=== PATIENT | female | born 1980 | race Caucasian/White ===

== ENCOUNTER 2018-04-21 22:24 | Emergency (ER) | payer OTHER ==
[~2018-04-21] VITALS: Ht 170.2 cm; Wt 47.6 kg
[~2018-04-21 22:24] MED LIST: Augmentin 875-1 EACH PO; CIPR500 PO; CYCL10 PO; Cyclobenzaprine5 MG PO; DIAZ5 PO; IBUP400 PO; MULVITMIND PO; NAPR500 PO; Naprosyn500 MG PO; PENVK500 PO; TRAM50 PO; TRAZ50 PO
== END 2018-04-21 23:37 | disposition home or self-care (01) ==
LOC: ER 22:24
DX: S16.1XXA Strain of muscle, fascia and tendon at neck level, initial encounter (principal); F17.210 Nicotine dependence, cigarettes, uncomplicated; W19.XXXA Unspecified fall, initial encounter
CPT/HCPCS: 72040; 96372; 99283-25; J1885

== ENCOUNTER 2018-12-21 01:54 | Inpatient (IN) | payer OTHER ==
[~2018-12-21] VITALS: Ht 170.2 cm; Wt 54.4 kg
[2018-12-21 02:39] LABS: BASOPHILS ABSOLUTE AUTO 0.04 K/mm3 (0.00-0.23); BASOPHILS PERCENT AUTO 0 % (0-2); EOSINOPHILS ABSOLUTE AUTO 0.04 K/mm3 (0.00-0.68); EOSINOPHILS PERCENT AUTO 0 % (0-6); Hematocrit 35.8 % (33.0-51.0); IMMATURE GRAN ABSOLUTE AUTO 0.08 K/mm3 (0.00-0.10); IMMATURE GRAN PERCENT AUTO 1 % (0-1); LYMPHOCYTES ABSOLUTE AUTO 1.84 K/mm3 (0.84-5.20); LYMPHOCYTES PERCENT AUTO 12 % (21-46); MONOCYTES ABSOLUTE AUTO 1.77 K/mm3 (0.16-1.47); MONOCYTES PERCENT AUTO 11 % (4-13); Mean Corpuscular HGB 25.3 pg (26.0-34.0); Mean Corpuscular HGB Conc 30.7 g/dL (31.5-36.5); Mean Corpuscular Volume 83 fL (80-100); NEUTROPHILS ABSOLUTE AUTO 11.72 K/mm3 (1.96-9.15); NEUTROPHILS PERCENT AUTO 76 % (41-73); Platelet Count 310 K/mm3 (150-400); RDW Coefficient Variation 14.7 % (11.7-14.2); RDW Standard Deviation 44.8 fL (35.1-46.3); Red Blood Cell Count 4.34 M/mm3 (3.80-5.20); White Blood Cell Count 15.49 K/mm3 (4.00-11.30)
[2018-12-21 02:56] LABS: Alanine Aminotransfer (ALT/SGP 30 U/L (12-78); Albumin, Blood 2.9 g/dL (3.4-5.0); Albumin/Globulin Ratio 0.5 (0.8-1.8); Alk Phos 99 U/L (50-136); Anion Gap 7 mmol/L (6-16); Aspartate Aminotrans (AST/SGOT 20 U/L (12-37); Bilirubin, Total 0.5 mg/dL (0.1-1.0); Blood Urea Nitrogen 13 mg/dL (8-24); Bun/Creatinine Ratio 17.5 (12.0-20.0); CO2, Blood 27 mmol/L (21-32); Calcium, Blood 8.5 mg/dL (8.5-10.1); Chloride, Blood 102 mmol/L (98-108); Creatinine, Blood 0.74 mg/dL (0.40-1.00); Globulin, Blood 5.4 g/dL (2.2-4.0); Glomerular Filtration Rate >60 (60-); Glucose, Blood 89 mg/dL (70-99); Potassium, Blood 3.4 mmol/L (3.5-5.5); Sodium, Blood 136 mmol/L (136-145); Total Protein, Blood 8.3 g/dL (6.4-8.2)
[2018-12-21 04:01] LABS: International Normalized Ratio 1.05; Prothrombin Time Results 11.1 Sec (9.7-11.5)
[2018-12-21 04:01] LABS: BASOPHILS ABSOLUTE AUTO 0.05 K/mm3 (0.00-0.23); BASOPHILS PERCENT AUTO 0 % (0-2); EOSINOPHILS ABSOLUTE AUTO 0.07 K/mm3 (0.00-0.68); EOSINOPHILS PERCENT AUTO 0 % (0-6); Hematocrit 36.1 % (33.0-51.0); IMMATURE GRAN ABSOLUTE AUTO 0.09 K/mm3 (0.00-0.10); IMMATURE GRAN PERCENT AUTO 1 % (0-1); LYMPHOCYTES ABSOLUTE AUTO 1.93 K/mm3 (0.84-5.20); LYMPHOCYTES PERCENT AUTO 12 % (21-46); MONOCYTES ABSOLUTE AUTO 1.56 K/mm3 (0.16-1.47); MONOCYTES PERCENT AUTO 10 % (4-13); Mean Corpuscular HGB 25.3 pg (26.0-34.0); Mean Corpuscular HGB Conc 30.5 g/dL (31.5-36.5); Mean Corpuscular Volume 83 fL (80-100); Mean Platelet Volume 8.9 fL (9.1-12.4); NEUTROPHILS ABSOLUTE AUTO 12.49 K/mm3 (1.96-9.15); NEUTROPHILS PERCENT AUTO 77 % (41-73); Platelet Count 321 K/mm3 (150-400); RDW Coefficient Variation 14.7 % (11.7-14.2); RDW Standard Deviation 45.1 fL (35.1-46.3); Red Blood Cell Count 4.35 M/mm3 (3.80-5.20); White Blood Cell Count 16.19 K/mm3 (4.00-11.30)
[2018-12-21 04:19] LABS: Alanine Aminotransfer (ALT/SGP 33 U/L (12-78); Albumin/Globulin Ratio 0.5 (0.8-1.8); Alk Phos 107 U/L (50-136); Anion Gap 7 mmol/L (6-16); Aspartate Aminotrans (AST/SGOT 23 U/L (12-37); Bilirubin, Total 0.6 mg/dL (0.1-1.0); Blood Urea Nitrogen 13 mg/dL (8-24); Bun/Creatinine Ratio 17.6 (12.0-20.0); CO2, Blood 28 mmol/L (21-32); Calcium, Blood 8.7 mg/dL (8.5-10.1); Chloride, Blood 102 mmol/L (98-108); Creatinine, Blood 0.74 mg/dL (0.40-1.00); Globulin, Blood 5.5 g/dL (2.2-4.0); Glomerular Filtration Rate >60 (60-); Glucose, Blood 98 mg/dL (70-99); Potassium, Blood 3.1 mmol/L (3.5-5.5); Sodium, Blood 137 mmol/L (136-145); Total Protein, Blood 8.5 g/dL (6.4-8.2)
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
[2018-12-21 09:53] LABS: Source, Urine Clean Catch
[2018-12-21 10:06] LABS: Bilirubin, Urine Neg (Neg); Blood, Urine 4+ (Neg); Glucose Qualitative, Urine Neg (Neg); Ketones, Urine Neg (Neg); Leukocyte Esterase, Urine 1+ (Neg); Nitrite, Urine Neg (Neg); Protein, Urine 1+ (Neg); Specific Gravity, Urine 1.005 (1.003-1.022); Urobilinogen, Urine NORM (Normal); pH, Urine 6.5 (5.0-8.0)
[2018-12-21 10:20] LABS: Appearance, Urine Hazy (Clear); Color, Urine Yellow (P-Yellow); Squamous Epithelial Cells Few /hpf (Few)
[2018-12-21 10:21] LABS: Bacteria Rare /hpf
--- NOTE | 2018-12-21 16:09 | NUR ---
summary PT IS A/O X4, PLEASANT/COOPERATIVE, UP IND HOWEVER PAIN R THIGH W AMBULATION. HAVE GIVEN FENTANYL FOR PAIN CONTROL/RELIEF. R INNER THIGH SWOLLEN, RED, HARD W SMALL SCAB, MINIMAL DRAINAGE. CLEANED AREA THIS AM & PLACED ABD PAD. DR LADD (SURG CONSULT) IN TO SEE PT. NO SURGERY @ THIS TIME HOWEVER PLACE ORDER TO KEEP PT NPO FOR THE REST OF DAY & MX, IF NO IMPROVEMENT OR WORSENING THEN POSSIBLE SURG TOMORROW. IV ANTIBX CONTINUE. LOW K+ @ 3.1, KRIDER GIVEN TODAY. HR SOMEWHAT TACHY 100-110/TELE. IV NS @ 125 ML/HR. PT HAS DOG IN ROOM WITH HER, SHE HAS BEEN ATTEMPTING TO FIND SOMEONE TO TAKE DOG OUT HOWEVER UNSUCCESSFUL YET. MINISTER HELPER AWARE.
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
[2018-12-22 05:01] LABS: Hematocrit 29.1 % (33.0-51.0); Hemoglobin 8.9 g/dL (11.5-16.0); Mean Corpuscular HGB 25.8 pg (26.0-34.0); Mean Corpuscular HGB Conc 30.6 g/dL (31.5-36.5); Mean Corpuscular Volume 84 fL (80-100); Platelet Count 253 K/mm3 (150-400); RDW Standard Deviation 45.9 fL (35.1-46.3); Red Blood Cell Count 3.45 M/mm3 (3.80-5.20); White Blood Cell Count 10.61 K/mm3 (4.00-11.30)
[2018-12-22 05:57] LABS: Alanine Aminotransfer (ALT/SGP 27 U/L (12-78); Albumin, Blood 2.2 g/dL (3.4-5.0); Albumin/Globulin Ratio 0.5 (0.8-1.8); Alk Phos 90 U/L (50-136); Anion Gap 5 mmol/L (6-16); Aspartate Aminotrans (AST/SGOT 21 U/L (12-37); Bilirubin, Total 0.3 mg/dL (0.1-1.0); Blood Urea Nitrogen 7 mg/dL (8-24); Bun/Creatinine Ratio 9.9 (12.0-20.0); CO2, Blood 26 mmol/L (21-32); Calcium, Blood 8.1 mg/dL (8.5-10.1); Chloride, Blood 110 mmol/L (98-108); Creatinine, Blood 0.71 mg/dL (0.40-1.00); Globulin, Blood 4.5 g/dL (2.2-4.0); Glomerular Filtration Rate >60 (60-); Glucose, Blood 89 mg/dL (70-99); Potassium, Blood 4.2 mmol/L (3.5-5.5); Sodium, Blood 141 mmol/L (136-145); Total Protein, Blood 6.7 g/dL (6.4-8.2); Vancomycin, Trough 3.1 ug/mL (5.0-10.0)
--- NOTE | 2018-12-22 08:03 | NUR ---
SHIFT SUMMARY PT SLEPT WELL T/O NIGHT. AOX4. DENIES NAUSEA OR SOB. REPORTS 7/10 PAIN IN RIGHT UPPER THIGH, MEDICATED W/FENTANYL PER ORDERS. RIGHT UPPER THIGH IS RED, WARM TO TOUCH, TENDER, FIRM & SWOLLEN, PT REPORTS THE SWELLING HAS DECREASED, SWELLING IS MAPPED W/MARKER. PT HAS BEEN NPO SINCE MIDNIGHT, INCASE POSSIBLE PROCEDURE TODAY. CALL LIGHT IN REACH.
--- NOTE | 2018-12-22 19:43 | NUR ---
SHIFT SUMMARY PT A&OX4. CALM AND COOPERATIVE WITH CARE. PT RESTING IN BED DURING SHIFT. IND TO BSC. PT STATES REDNESS AND SWELLING ARE BETTER THAN YESTERDAY, REDNESS APPEARS TO BE RECEEDING FROM MARKED LINE, DRAINING SANGUINEOUS FLUID. PT RECEIVING IV ANTIBIOTICS. PT REPORTS PAIN IN RIGHT THIGH, MEDICATED X1 WITH IV FENTANYL. PT DENIES SOB AND N/V. VSS, REMAINS AFEBRILE DURING SHIFT. NO OTHER ACUTE CHANGES NOTED DURING SHIFT. REPORT GIVEN TO ONCOMING RN.
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
--- NOTE | 2018-12-23 07:42 | NUR ---
SHIFT SUMMARY PT SLEPT WELL T/O NIGHT. NO ACUTE CHANGES THIS SHIFT. AOX4. VSS. DENIES SOB OR NAUSEA. RIGHT UPPER THIGH IS STILL RED, FIRM, TENDER, W/A MODERATE AMOUNT SANGUINOUS DRAINAGE, ABD PAD WAS PLACED TO HELP W/DRAINAGE. CALL LIGHT IS IN REACH.
[2018-12-23] MEDS ORDERED: CLIN300 PO (10:41)
[2018-12-23] MEDS ORDERED: ACET325 PO (10:41)
--- NOTE | 2018-12-23 16:15 | NUR ---
DISCHARGE SUMMARY PT A&OX4. ANXIOUS AT TIMES, COOPERATIVE WITH CARE. PT RESTING IN BED DURING SHIFT. UP IND TO BSC. RIGHT UPPER, INNER THIGH IS RED, FIRM AND TENDER. PT REPROTS PAIN, MEDICATED X1 WITH FENTANYL WITH POSITIVE RESULTS. PT RECEIVING IV ANTIBIOTICS AND WILL TRANSITION TO PO ANTIBIOTICS AT HOME. PT DENIES SOB AND N/V DURING SHIFT. VSS. NO OTHER ACUTE CHANGES NOTED DURING SHIFT. PT EDUCATED ON DISCHARGE INSTURCTION, MEDICATIONS AND FOLLOW UP APPOINTMENTS. PRESCRIPTION ORIGINALLY FAXED TO [facility] PER PT REQUEST, [facility] [place] [facility] PT REQUEST. PT LEFT ROOM VIA WHEELCHAIR AT 1535 WITH TRANSPORT. PT STABLE UPON DISCHARGE.
== END 2018-12-23 15:41 | disposition home or self-care (01) | DRG 872 ==
LOC: ER 01:54 → MEDS 05:33 → ENPENDDIS 12-23 10:18 → MEDS 12-23 15:41
PROVIDERS: Emergency Medicine; ADMIT Internal Medicine
DX: A41.9 Sepsis, unspecified organism (principal); L03.115 Cellulitis of right lower limb; E86.0 Dehydration; E87.6 Hypokalemia; M60.861 Other myositis, right lower leg; T24.011A Burn of unspecified degree of right thigh, initial encounter; X08.8XXA Exposure to other specified smoke, fire and flames, initial encounter; F17.210 Nicotine dependence, cigarettes, uncomplicated; F12.90 Cannabis use, unspecified, uncomplicated; F15.10 Other stimulant abuse, uncomplicated
CPT/HCPCS: 36415; 73701; 80053; 80202; 81001; 81025; 83605; 85025; 85027; 85610; 87040; 87086; 96361-59; 96374-59; 96375-59; 99284-25; J1170; J1650; J2543; J3010; J3370; J3480; J7030; J7050; J7120; Q9967

== ENCOUNTER 2019-02-21 18:07 | Emergency (ER) | payer OTHER ==
[~2019-02-21] VITALS: Ht 167.6 cm; Wt 56.7 kg
[~2019-02-21 18:07] MED LIST changes: +ACET325 PO; +CLIN300 PO
[2019-02-21] MEDS ORDERED: Keflex500 MG PO (18:32)
== END 2019-02-21 18:35 | disposition home or self-care (01) ==
LOC: ER 18:07
DX: L03.115 Cellulitis of right lower limb (principal); F17.210 Nicotine dependence, cigarettes, uncomplicated
CPT/HCPCS: 99281